=== PATIENT | male | born 1990 | race Hispanic/Latino ===

== ENCOUNTER 2016-07-22 12:27 | Emergency (ER) | payer OTHER ==
[2016-07-22 12:40] VITALS: BP 125/82; PULSE 109; RESP 16; O2SAT 95
--- NOTE | 2016-07-22 12:41 | ED.REPORT ---
HPI-Extremity Problem Upper Date of Service July 22, 2016 ED Provider: Dr. Del Angel THe patient is a 26 year old male who presents to the ED via EMS due to left arm pain onset [employer]. He was the goalie in a soccer game and another player kicked the soccer ball toward the goal. As the pt dove to catch the ball, the other player fell onto the pt's left arm and crushed it. He presents with his arm in immobilized by medics in a large sling. The pt is alert and awake at the ED, able to give full PMHx. He denies fever, LOC, dizziness, weakness, and numbness. Nursing Notes Stated Complaint: LEFT ARM DEFORMITY Chief Complaint: Extremity Trauma Nursing Notes Reviewed: Yes Allergies: Coded Allergies: No Known Allergies (Unverified , 07/22/16) Scheduled PRN Hydrocodone-Acetaminophen 5-325 mg (Hydrocodone-Acetaminophen 5-325 mg) 1 Each Tablet 1 TABLET PO Q4H PRN PRN For Pain General Time Seen by MD: 12:40 Chief Complaint Arm injury left Hx Obtained From: Patient Arrived By: Ambulance Onset Occurred: Just prior to arrival Symptom Duration: Since onset Caused by: Sports injury Location: : Arm left Quality: Painful Severity: Current: Moderate Recent Healthcare: No recent doctor visit, No recent hospitalization Similar Sx Previous: No Past Medical History Past Medical History healthy Past Surgical History denies Smoking History Unknown if Ever Smoker Social History Other Social History: Good social support, Local resident Ambulatory Status Independent Review of Systems Constitutional: Denies: Fever Musculoskeletal: Reports: Extremity pain (left arm ), Extremity swelling (left arm) Neurologic: Denies: Change LOC, Dizziness, Lightheaded, Numbness, Weakness Complete sys rev & neg: except as marked. Physical Exam Initial Vital Signs Vital Signs (First) Date Time Temp Pulse Resp B/P Pulse Ox O2 Delivery O2 Flow Rate FiO2 07/22/16 12:40 36.7 109 16 125/82 95 Room Air Initial VS: Reviewed Head / Eyes: Atraumatic, Normocephalic, PERRL ENT: Mucous membranes moist, Conjunctiva normal Neck: Supple, Non-tender Respiratory: Breath sounds normal, Clear to auscultation, No respiratory distress Cardiovascular: Regular rate & rhythm, Heart sounds normal, Intact distal pulses Abdomen / GI: Soft, Non-tender, No guarding, No rebound, No distention Back: No CVA tenderness Skin: Warm, Dry Left Upper Arm: Positive: Swelling present..., Tenderness present... gross deformmity of left proximal humerus left upper extremity neurovascularly intact Interpretation & Diagnostics Interpretation & Diagnostics: LEFT HUMERUS X-RAY IMPRESSION: Displaced humerus fracture. Dictated by: Deanna Navas MD, PhD on 07/22/2016 at 13:36 Approved by: Deanna Navas MD, PhD on 07/22/2016 at 13:37 X-Ray Interpretation Xray Interpretation: LEFT SHOULDER X-RAY IMPRESSION: No fracture. No osseous lesion. If there are persistent symptoms or clinical suspicion for pathology, then repeat radiographs or advanced imaging (CT, MRI or bone scan) should be considered for further evaluation. Dictated by: Deanna Navas MD, PhD on 07/22/2016 at 13:35 Approved by: Deanna Navas MD, PhD on 07/22/2016 at 13:36 X-Ray Ordered: Shoulder left Interpretation / Wet Read by: Interpret - Radiologist Re-Eval/Medical Decision Med Decision/Clinical Course 26-year-old male with left mid shaft humerus fracture after soccer injury. Left upper extremity is neurovascularly intact. Discussed with orthopedics who reviewed the films and recommended sugar tong splint and sling plans to call for an appointment with orthopedics tomorrow for follow-up later this week. Given return precautions if any weakness numbness tingling or worsening pain left upper extremity. His left upper extremity is neurovascularly intact post-splint placement. Discharged home in good condition with return precautions. Counseled Regarding: Diagnosis, Lab results, Need for follow-up, When/why to return to ED Discharge & Departure Impression: Primary Impression: Humerus fracture Encounter type: initial encounter Fracture alignment: displaced Laterality : left Disposition: Home Discharge Condition All VS Reviewed: Yes Condition: Stable Additional Instructions: Thank you for entrusting us with your care today. Your x-ray shows that you have a displaced humerus fracture. I have talked with the orthopedic surgeon and he advises that you return home today and follow up with orthopedics tomorrow. I have attached the contact information. Take Tylenol and Ibuprofen as needed for pain. Do not hesitate to return to the Emergency Department for any new or worsening symptoms including increased pain, swelling, redness, warmth, dizziness, nausea, vomiting, or loss of consciousness. I hope your recovery goes smoothly, enjoy the beautiful weather outside! Referrals: Morgan Beckman PA-C [facility] Scribe Attestation Portion of this note were transcribed by Jaelyn Herrera. I, Dr. Del Angel, personally performed the history, physical exam, and medical decision-making: I reviewed and confirmed the accuracy for the information in the transcribed note. Signed by: farzana Frank, 07/22/16 1500 copies to: Morgan Beckman PA-C; [facility] [place] Del Angel MD July 22, 2016 12:40 Jaelyn Herrera July 22, 2016 12:46
[2016-07-22] MEDS ORDERED: Ondansetron 2 mg/mL 2 mL Inj IVPUSH PRN (12:45)
[2016-07-22] MEDS: HYDROmorphone 1 mg/mL Inj IVPUSH PRN ×3 (13:03→14:27)
--- NOTE | 2016-07-22 13:37 | DRSVH ---
PROCEDURE: X-RAY LEFT SHOULDER, MINIMUM TWO VIEWS ([id number]) INDICATIONS: trauma TECHNIQUE: 2 views of the shoulder were acquired. COMPARISON: None. FINDINGS: Bones: No fractures or dislocations. No suspicious bony lesions. Visualized ribs appear intact. Soft tissues: No suspicious soft tissue calcifications. IMPRESSION: No fracture. No osseous lesion. If there are persistent symptoms or clinical suspicion f or pathology, then repeat radiographs or advanced imaging (CT, MRI or bone scan) should be considered for further evaluation. Dictated by: Deanna Navas MD, PhD on 07/22/2016 at 13:35 Approved by: Deanna Navas MD, PhD on 07/22/2016 at 13:36
--- NOTE | 2016-07-22 13:38 | DRSVH ---
PROCEDURE: X-RAY LEFT HUMERUS, MINIMUM TWO VIEWS ([id number]) INDICATIONS: trauma TECHNIQUE: 2 views of the humerus were acquired. COMPARISON: None. FINDINGS: Bones: Transverse fracture through the humerus midshaft is noted. Distal fracture fragment is displ aced medially. Soft tissues: No suspicious soft tissue calcifications. IMPRESSION: Displaced humerus fracture. Dictated by: Deanna Navas MD, PhD on 07/22/2016 at 13:36 Approved by: Deanna Navas MD, PhD on 07/22/2016 at 13:37
[2016-07-22] MEDS ORDERED: HYDR-4003 PO (13:43)
[2016-07-22 14:46] VITALS: BP 115/78
[2016-07-22 14:52] VITALS: BP 143/85; PULSE 90; RESP 15; O2SAT 98
== END 2016-07-22 14:53 | disposition home or self-care (01) ==
LOC: SED 12:27 → EDBD 12:27 → SED 14:53
DX: S42.392A Other fracture of shaft of left humerus, initial encounter for closed fracture (principal); W51.XXXA Accidental striking against or bumped into by another person, initial encounter; Y92.322 Soccer field as the place of occurrence of the external cause; Y93.66 Activity, soccer; Y99.8 Other external cause status
CPT/HCPCS: 73030; 73060; 96374; 96375; 96376; 99284; J1170; J2405